=== PATIENT | female | born 1940 | race Caucasian/White ===

== ENCOUNTER → 2020-06-09 15:00 | Outpatient (CLI) | payer OTHER ==
[~2020-06-09 15:00] MED LIST: AVAPRO150 MG; SYNTHROID50 MCG
== END | disposition home or self-care (01) ==
LOC: PPH VACUNA 15:00
PROVIDERS: ATTEND Emergency Medicine Pediatric Emergency Medicine
DX: Z23 Encounter for immunization (principal)

== ENCOUNTER → 2021-02-27 | Outpatient (CLI) | payer OTHER | END | disposition home or self-care (01) | LOC: PPH VACUNA 02-26 08:00 | PROVIDERS: ATTEND Emergency Medicine Pediatric Emergency Medicine | DX: Z23 Encounter for immunization (principal) ==

== ENCOUNTER 2024-11-23 13:08 | Emergency (ER) | payer OTHER ==
[~2024-11-23] VITALS: Ht 165.1 cm; Wt 47.6 kg
[2024-11-23] MEDS ORDERED: LACTULOSE 20 G/30 ML BLIST.PACK PO STA (14:29)
[2024-11-23] MEDS ORDERED: MINERAL OIL 30 ML BLIST.PACK PO STA (14:29)
[2024-11-23] MEDS ORDERED: MAGNESIUM HYDROXIDE 400 MG/5 ML ML PO STA (14:32)
[2024-11-23] MEDS ORDERED: MIRALAX17 GM PO (15:15)
== END 2024-11-23 16:16 | disposition home or self-care (01) ==
LOC: ER 13:08
DX: K59.00 Constipation, unspecified (principal); I10 Essential (primary) hypertension